=== PATIENT | female | born 1950 | race Caucasian/White ===

== ENCOUNTER 2019-12-14 09:42 | Day surgery (SDC) | payer MEDICARE, OTHER ==
[2019-12-14] MEDS ORDERED: Lactated Ringers 1,000 ML IV SCH (10:15)
[2019-12-14] MEDS ORDERED: Cyanocobalamin (Vitamin B12) 1,000 MCG/ML SDV IM ONE (10:45)
[2019-12-14] MEDS ORDERED: Glycopyrrolate 0.2 MG/ML 2 ML SDV IVPUSH ONE (10:45)
[2019-12-14] MEDS ORDERED: MVI, Adult with Vitamin K 10 ML, Thiamine 200 MG, Chromium/Copper/Mang/Selen/Zn 1 ML in... IV ONE ×4 (11:15)
[2019-12-14] MEDS ORDERED: Propofol 200 MG/20 ML SDV ONE (12:01)
[2019-12-14] MEDS ORDERED: fentaNYL 100 MCG/2 ML SDV ONE (12:01)
[2019-12-14] MEDS ORDERED: Midazolam 1 MG/ML 2 ML SDV ONE (12:01)
[2019-12-14] MEDS ORDERED: Pantoprazole 40 MG Vial IVPUSH ONE (12:32)
[2019-12-14] MEDS ORDERED: Lidocaine 2% 60 ML, Alum Hydrox/Mag Hydrox/Simeth 360 ML PO PRN ×2 (13:33)
--- NOTE | 2019-12-17 12:12 | OR ---
DATE OF PROCEDURE: 12/14/2019 SURGEON: Bennie Mckeon MD PREOPERATIVE DIAGNOSIS: Postprandial epigastric and abdominal pain. POSTOPERATIVE DIAGNOSES: Postprandial epigastric and mid abdominal pain associated with: 1. Mild inflammation of the gastrojejunostomy. 2. Foreign body (staple) eroded into the gastrojejunostomy. OPERATIVE PROCEDURE: Upper GI endoscopy with removal of foreign body (46314). ANESTHESIA: IV sedation. INDICATIONS FOR PROCEDURE: This is a 69-year-old female presenting with some postprandial epigastric and upper and mid abdominal pain. Plan is to proceed with upper GI endoscopy with biopsies as indicated. Potential risks of the procedure including bleeding and perforation were discussed, and the patient wishes to proceed. DETAILS OF PROCEDURE: The patient was taken to the operating room and placed in a left lateral decubitus position and IV sedation administered. The upper GI endoscope was passed orally through the length of the esophagus into the gastric pouch, from there through the gastrojejunostomy roughly 20 cm into the Amina limb. The esophagus and the area of the EG junction were unremarkable. There was some perhaps very mild redness and edema. At the gastrojejunostomy, there was some fibrinous exudate. As this was washed way, she was noted to have a staple that had eroded through the anastomosis. Apart from that, the remainder of the gastrojejunostomy was unremarkable, there was no marginal ulcer, and remainder of the Amina limb was unremarkable as well. At this point, the staple was grasped and removed and the procedure was then concluded. No biopsies were taken for H pylori. This patient had a negative H pylori done at [place]. At this point, the patient has been on Carafate for treatment of the epigastric discomfort. We will give her some Protonix 40 mg IV in the recovery room and then begin Protonix 40 mg daily. We will also have pharmacy mix 2 bottles of 2 ounces of Xylocaine with 12 ounces of Mylanta with 1 to 2 tablespoons to be taken on a p.r.n. basis and that the patient will be following up with Jaky Moore in about 2 weeks. If after 2 weeks of this regimen, the patient still is symptomatic, one would need to reconsider whether the patient has a partial small bowel obstruction. Bennie Mckeon MD /[id number]
== END 2019-12-14 14:00 | disposition home or self-care (01) ==
LOC: JP.SDS 09:42
PROVIDERS: ATTEND Surgery
DX: T18.2XXA Foreign body in stomach, initial encounter (principal); K63.89 Other specified diseases of intestine; Y73.2 Prosthetic and other implants, materials and accessory gastroenterology and urology devices associated with adverse incidents
CPT/HCPCS: 43247; A9270; C9113; J2250; J2704; J3010; J3411; J3420; J3490; J7120; 88300

== ENCOUNTER 2020-05-29 11:44 | Inpatient (IN) | payer MEDICARE, OTHER ==
[2020-05-29] MEDS ORDERED: Iopamidol 612 MG/ML 50 ML SDV PO ONE (12:13)
[2020-05-29] MEDS ORDERED: Acetaminophen 325 MG Tab PO PRN (12:45)
[2020-05-29] MEDS ORDERED: Acetaminophen 650 MG Supp RECTAL PRN (12:46)
[2020-05-29] MEDS: Dextrose 5%-Lactated Ringers 1,000 ML IV SCH ×2 (13:24→23:07)
[2020-05-29] MEDS ORDERED: Iopamidol 612 MG/ML 500 ML Multipack Bottle IV ONE (14:40)
[2020-05-29] MEDS ORDERED: Sodium Chloride 0.9% 10 ML Syringe FLUSH PRN ×2 (14:40→14:44)
[2020-05-29] MEDS ORDERED: Iopamidol 612 MG/ML 150 ML Bottle IV SCH (14:45)
[2020-05-29] MEDS: Pantoprazole 40 MG Vial IV SCH (14:46)
--- NOTE | 2020-05-29 15:47 | CT ---
Abdomen Pelvis w Cont CLINICAL HISTORY: GI bleed COMPARISON: None. TECHNIQUE: Axial tomographic images are obtained from the dome of the diaphragm to the pubic symphysis without IV contrast enhancement. Oral contrast was used. Auto dosage reduction and iterative reconstruction techniques employed. FINDINGS: The lung bases are clear. There is a moderate-sized hiatal hernia there has been previous gastric surgery. This may been a Maurizio procedure. The liver contains a few small cysts.. The gallbladder has been removed. The spleen has a normal size and shape. The pancreas shows no mass or inflammatory change. The adrenal glands appear normal bilaterally. There is an 8.8 x 9.5 cm cyst of the right kidney. There is no mass, stones or hydronephrosis. Ureters have a normal course and caliber. Bladder has normal contour. The small intestinal configuration is nonacute. There is gas and feces throughout the colon. There is some sigmoid diverticulosis without evidence of diverticulitis. Abdominal pelvic fat planes and low pelvic side velez are well demarcated. The aorta is atheromatous plaque without aneurysm.. There is no suspicious retroperitoneal adenopathy. Patient has had previous ventral hernia repair there is a some focal convexity knee. Umbilical region. There is no evidence of incarceration IMPRESSION: Moderate size hiatal hernia. There has been previous gastric surgery which may be a Maurizio procedure. Large right renal cyst Diverticulosis without evidence of diverticulitis Previous ventral hernia repair with some convexity in the periumbilical region.
[2020-05-29] MEDS: Trospium 20 MG Tab PO SCH (22:04)
[2020-05-30] MEDS: Pantoprazole 40 MG Vial IV SCH ×2 (01:53→14:02)
[2020-05-30] MEDS ORDERED: fentaNYL 100 MCG/2 ML SDV ONE (07:18)
[2020-05-30] MEDS ORDERED: Propofol 200 MG/20 ML SDV ONE (07:18)
[2020-05-30] MEDS ORDERED: Midazolam 1 MG/ML 2 ML SDV ONE (07:18)
[2020-05-30] MEDS: Trospium 20 MG Tab PO SCH ×2 (08:28→20:15)
[2020-05-30] MEDS: Dextrose 5%-Lactated Ringers 1,000 ML IV SCH ×2 (08:35→19:30)
--- NOTE | 2020-05-30 08:49 | PN ---
DATE OF SERVICE: 05/30/2020 SUBJECTIVE: Maty was admitted directly from the clinic with a GI bleed yesterday. She has had no further stools. Has been on a full liquid diet. Denies pain. Vital signs have been stable. Hemoglobin on admission was 10.1 and this morning is 8.8. She is n.p.o. for an EGD today. Case to follow. REVIEW OF SYSTEMS: GENERAL: Continues to feel weak, lightheaded. NECK: Negative. CHEST: No chest pain, shortness of breath, fast or irregular heartbeat. LUNGS: No cough. ABDOMEN: Continues to have pain in the right mid and bilateral lower quadrants, mild. As stated, no black stools. EXTREMITIES: Negative. NEUROLOGIC: Intact. PSYCHIATRIC: Mood and affect appropriate. OBJECTIVE: GENERAL: Maty is a pleasant 69-year-old female. Color is pale, looks weak. VITAL SIGNS: Last TPR, due to computer shutdown, charted elsewhere, was 05/29/2020 at 2247; 97.7, 51, 16. Blood pressure 95/42. Rechecked at 2308, and blood pressure was 100/32. HEENT: Negative. NECK: Supple. HEART: Regular rate and rhythm. LUNGS: Clear. ABDOMEN: Remains to be mildly tender in right mid and bilateral lower quadrants. EXTREMITIES: Without peripheral edema. ASSESSMENT: Gastrointestinal bleed, black stools. PLAN: Type and crossmatch 2 units. Give 1 unit of packed red blood cells after EGD. Check CBC, CMP, mag, phos in a.m. Further orders to be written after EGD. Jaky Moore PA-C /[id number]
[2020-05-30] MEDS ORDERED: Ondansetron 4 MG/2 ML SDV ONE (08:56)
[2020-05-30] MEDS ORDERED: Glycopyrrolate 0.2 MG/ML 2 ML SDV IV ONE (09:00)
[2020-05-30] MEDS: Famotidine 20 MG/2 ML SDV IV SCH ×2 (11:15→23:22)
[2020-05-30] MEDS: Sodium Ferric Gluconate Cmplex 250 MG in Sodium Chloride 0.9% 100 ML IV SCH (14:05)
[2020-05-30] MEDS ORDERED: Benzocaine/Cetylpyridinium/Menthol Lozenge MUCMEM PRN (20:04)
[2020-05-31] MEDS: Pantoprazole 40 MG Vial IV SCH ×2 (02:12→15:12)
[2020-05-31] MEDS: Dextrose 5%-Lactated Ringers 1,000 ML IV SCH (05:41)
[2020-05-31] MEDS: Trospium 20 MG Tab PO SCH (08:28)
--- NOTE | 2020-05-31 08:47 | PN ---
DATE OF SERVICE: 05/31/2020 SUBJECTIVE: Maty had an upper endoscopy yesterday and it was negative for any diagnostic reasoning for black stools. She has had a total of 6 black stools on 05/29, and on 05/30, she had 4 black stools. Remains to feel quite weak. Vital signs are stable. Hemoglobin yesterday was 8.9. She received 1 unit of packed red blood cells and her hemoglobin is 9.5 today. REVIEW OF SYSTEMS: Denies any headache. Reports some dizziness and weakness when up and ambulating. NECK: Negative. CHEST AND LUNGS: Denies any chest pain, shortness of breath, fast or irregular heart beat. No cough. ABDOMEN: Had some pain in her right lower quadrant and left upper quadrant yesterday. She states that it is discomfort. Nothing she would take anything for, but she feels like whatever is going on with her black stools has not completely resolved. Denies any joint pain or swelling. Remainder of review of systems negative for any pertinent positives and negatives. OBJECTIVE: GENERAL: Maty Weems is a pleasant 69-year-old female. She is alert, oriented. Color pale. VITAL SIGNS: TPR at 0209 was 96.1, 59, 16, blood pressure 94/45. HEENT: Negative. NECK: Supple. HEART: Regular rate and rhythm. LUNGS: Clear. ABDOMEN: There is mild general tenderness in the right and left lower quadrants and left upper quadrant. EXTREMITIES: Without peripheral edema. NEUROLOGIC: Cranial nerves 2-12 intact. PSYCHIATRIC: Mood and affect appropriate. ASSESSMENT: 1. Esophagogastroduodenoscopy, 05/30/2020, Bennie Mckeon MD. 2. Gastrointestinal bleed, source unknown. 3. Black stools. 4. 1 unit of packed red blood cells for hemoglobin 8.9 on 05/30/2020. PLAN: 1. Schedule and have consent signed for colonoscopy with IV sedation. Bennie Mckeon MD. Date, 06/03/2020. Time to be determined. 2. Routine prep ordered by Pharmacy. 3. Check CBC, CMP, mag, phos, and type and cross 2 units of packed red blood cells in a.m. Transfuse 1 unit of packed red blood cells today and D5 LR. Decrease rate to keep open until Wednesday when she goes n.p.o. We will evaluate p.r.n. or in a.m. Jaky Norby, PA-C /[id number]
[2020-05-31] MEDS: Famotidine 20 MG/2 ML SDV IV SCH ×2 (13:35→23:59)
[2020-05-31] MEDS: Sodium Ferric Gluconate Cmplex 250 MG in Sodium Chloride 0.9% 100 ML IV SCH (13:36)
[2020-05-31] MEDS ORDERED: Dextrose 5%-Lactated Ringers 1,000 ML IV SCH (14:00)
[2020-06-01] MEDS: Pantoprazole 40 MG Vial IV SCH ×2 (02:14→14:01)
--- NOTE | 2020-06-01 07:42 | PN ---
DATE OF SERVICE: 06/01/2020 SUBJECTIVE: Jennas hemoglobin this morning after 1 unit of packed red blood cells yesterday is 10.9. Her potassium is 3.4. She states she still has quite a bit in the way of abdominal pain prior to having a bowel movement, a burning hot crampy type pain and then she said she will have a bowel movement. Yesterday, she had 5 black stools. Continues to feel weak, lightheaded, and unsure of herself after standing for a few minutes. Vital signs, afebrile. Oral intake 2240. Urine output 3840. REVIEW OF SYSTEMS: HEENT: Negative. NECK: Negative. HEART AND LUNGS: No chest pain, shortness of breath. Denies any cough, fast or irregular heart beat. ABDOMEN: As above. GENITOURINARY: Negative. NEUROLOGIC: Negative. PSYCHIATRIC: Negative. SKIN: Negative for any rash. Remainder of review of systems negative for any pertinent positives and negatives. OBJECTIVE: GENERAL: Maty Weems is a pleasant 69-year-old female. VITAL SIGNS: TPR at 0400, 97, 54, 18, blood pressure 112/54. HEENT: Negative. NECK: Supple. HEART: Regular rate and rhythm. LUNGS: Clear. ABDOMEN: Remains to be mildly tender in lower quadrants, in the left upper mid quadrant. EXTREMITIES: Without peripheral edema. NEUROLOGIC: Cranial nerves II through XII intact. PSYCHIATRIC: Mood and affect appropriate. ASSESSMENT: 1. Esophagogastroduodenoscopy on 05/30/2020, Bennie cMkeon MD. 2. Gastrointestinal bleed, source unknown. 3. Black stool. 4. Two units of packed red blood cells for low hemoglobin. PLAN: 1. Check CBC, CMP in a.m. 2. Type and crossmatch 2 units of packed red blood cells, have 2 units on hold. 3. KCl 20 mEq p.o. b.i.d. 4. Continue to monitor black stools. 5. We will evaluate p.r.n. or in a.m. Jaky Moore PA-C /[id number]
[2020-06-01] MEDS: Potassium Chloride 20 MEQ Tab.ER PO SCH ×2 (08:14→16:00)
[2020-06-01] MEDS ORDERED: TOVIAZ 8 MG PO SCH (09:00)
[2020-06-01] MEDS: Famotidine 20 MG/2 ML SDV IV SCH (12:58)
[2020-06-01 18:11] LABS: H. PYLORI BREATH TEST Negative (Negative)
[2020-06-01] MEDS: TOVIAZ 8 MG PO SCH (21:19)
[2020-06-02] MEDS: Famotidine 20 MG/2 ML SDV IV SCH ×3 (00:18→23:38)
[2020-06-02] MEDS: Pantoprazole 40 MG Vial IV SCH ×2 (02:16→13:07)
[2020-06-02] MEDS: Potassium Chloride 20 MEQ Tab.ER PO SCH ×2 (08:46→17:07)
[2020-06-02] MEDS ORDERED: Bisacodyl 5 MG Tab PO ONE ×2 (09:00→20:00)
--- NOTE | 2020-06-02 10:17 | PN ---
DATE OF SERVICE: 06/02/2020 SUBJECTIVE: Maty reports that she has not had a bowel movement for 24 hours. She reports she has an area of firmness on her right lower quadrant, which she gets prior to a bowel movement. She feels like as that area moves before a bowel movement, it is extremely painful. She is not sure when she has a bowel movement, then if that particular stool is black. She has had this checked out several times, but by the time she gets to medical provider, that lump is gone. She can only feel it laying partially on her right side, it is tender. REVIEW OF SYSTEMS: GENERAL: Vital signs have been stable. States she is a little bit less weak today. HEENT: Negative. LUNGS: No chest pain or shortness of breath. No cough. HEART: No fast or irregular heart beat. ABDOMEN: As above. When this area of firmness, which is most likely stool moves, she states she gets sick, which is nauseated and crampy until she has a bowel movement, which is painful. EXTREMITIES: Negative. NEUROLOGIC: Intact. No headache or dizziness. PSYCHIATRIC: Mood and affect appropriate. Remainder of review of systems negative for any pertinent positives and negatives. OBJECTIVE: GENERAL: Maty Weems is a 69-year-old female. She is alert and orientated. Color pale. VITAL SIGNS: TPR at 0400 is 97.3, 52, 18; blood pressure 93/47. HEENT: Negative. NECK: Supple. HEART: Regular rate and rhythm. LUNGS: Clear. ABDOMEN: There is a firmness noted, feels like stool in the colon on the right lower quadrant. EXTREMITIES: Without peripheral edema. NEUROLOGIC: Intact. PSYCHIATRIC: Mood and affect appropriate. ASSESSMENT: 1. EGD, 05/30/2020, Bennie Mckeon MD. 2. Gastrointestinal bleed, source unknown. 3. Black stool. 4. Two units of packed red blood cells for low hemoglobin. PLAN: 1. Start D5 LR at 100 mL per hour at midnight when the patient becomes n.p.o. 2. N.p.o. after midnight and colon prep is already ordered and will be having a colonoscopy in the a.m. 3. We will evaluate p.r.n. or in a.m. Jaky Moore PA-C /[id number]
[2020-06-02] MEDS: Polyethylene Glycol 3350 Powder 238 GM Bot PO ONE ×2 (14:26→17:07)
[2020-06-02] MEDS: Dextrose 5%-Lactated Ringers 1,000 ML IV SCH (23:39)
[2020-06-03] MEDS: Pantoprazole 40 MG Vial IV SCH ×2 (02:42→14:21)
[2020-06-03] MEDS ORDERED: Midazolam 1 MG/ML 2 ML SDV ONE (07:31)
[2020-06-03] MEDS ORDERED: Propofol 200 MG/20 ML SDV ONE (07:31)
[2020-06-03] MEDS ORDERED: fentaNYL 100 MCG/2 ML SDV ONE (07:31)
[2020-06-03] MEDS ORDERED: Lactated Ringers 1,000 ML ONE (07:53)
[2020-06-03] MEDS: Potassium Chloride 20 MEQ Tab.ER PO SCH ×2 (09:37→16:03)
[2020-06-03] MEDS: Famotidine 20 MG/2 ML SDV IV SCH ×2 (13:01→23:39)
--- NOTE | 2020-06-03 16:32 | PN ---
DATE OF SERVICE: 06/03/2020 SUBJECTIVE: Maty is n.p.o. for colonoscopy on today. Hemoglobin 10.7. She had 9 stools on 06/02 and 4 stools on 06/03 so far: Stools are clear with flecks of black. Continues to report the right lower quadrant abdominal pain and bulging. REVIEW OF SYSTEMS: Remainder of review of systems negative for any pertinent positives and negatives. OBJECTIVE: GENERAL: Maty Weems is a 69-year-old female, color pale, alert and orientated. VITAL SIGNS: TPR at 0246; 96.6, 52, 14. Blood pressure 97/49. HEENT: Negative. NECK: Supple. HEART: Regular rate and rhythm. LUNGS: Clear. ABDOMEN: Tenderness and fullness in the right lower quadrant. EXTREMITIES: Without peripheral edema. NEUROLOGIC: Intact. PSYCHIATRIC: Mood and affect appropriate. ASSESSMENT: 1. Esophagogastroduodenoscopy, 05/30/2020, Bennie Mckeon MD. 2. Gastrointestinal bleed, source unknown. 3. Black stools. 4. Two units of packed red blood cells for low hemoglobin. PLAN: 1. Orders to be written after colonoscopy. 2. Check CBC, CMP, mag, phos in a.m. 3. We will evaluate p.r.n. or in a.m. Jaky Moore PA-C /[id number]
[2020-06-03] MEDS: TOVIAZ 8 MG PO SCH (21:26)
[2020-06-04] MEDS: Pantoprazole 40 MG Vial IV SCH ×2 (02:48→13:26)
--- NOTE | 2020-06-04 08:32 | PN ---
DATE OF SERVICE: 06/04/2020 SUBJECTIVE: Maty is n.p.o. She will be having an open repair of right inguinal hernia with mesh with general anesthesia. Case to follow today. She is n.p.o. Vital signs have been stable. Has had no further black stools. She did have a colonoscopy yesterday, which was unremarkable, REVIEW OF SYSTEMS: Remainder of review of systems negative for any pertinent positives and negatives. OBJECTIVE: GENERAL: Maty Weems is a pleasant 69-year-old female. TPR at 0300; 97.2, 58, 15, blood pressure 122/55. HEENT: Negative. NECK: Supple. HEART: Regular rate and rhythm. LUNGS: Clear. ABDOMEN: Right inguinal hernia noted. Tenderness and bulging. EXTREMITIES: Without peripheral edema. NEURO: Cranial nerves II through XII intact. PSYCHIATRIC: Mood and affect appropriate. ASSESSMENT: 1. Colonoscopy 06/03/2020, Bennie Mckeon MD. 2. Esophagogastroduodenoscopy 05/30/2020, Bennie Mckeon MD. 3. Gastrointestinal bleed. 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 4. Black stools. 5. 2 units of packed red blood cells for low hemoglobin. PLAN: Consent signed for open repair of right inguinal hernia with mesh. General anesthesia. Tap block, ketamine loading dose, and infusion. Case to follow 06/04/2020, surgeon Bennie Mckeon MD, clindamycin 900 mg IV, on-call to OR. After preoperative evaluation and discussion of possible risks and possible complications, the patient wishes to proceed with surgical procedure. Jaky Moore PA-C /[id number]
[2020-06-04] MEDS: Potassium Chloride 20 MEQ Tab.ER PO SCH ×2 (08:37→18:10)
[2020-06-04] MEDS: Dextrose 5%-Lactated Ringers 1,000 ML IV SCH ×2 (11:51→20:23)
[2020-06-04] MEDS ORDERED: Lidocaine 1% with EPINEPHrine 1:100,000 50 ML MDV ONE (12:17)
[2020-06-04] MEDS ORDERED: Bupivacaine 0.5% 50 ML MDV ONE (12:17)
[2020-06-04] MEDS ORDERED: Bupivacaine 0.5%/EPINEPHrine 1:200,000 50 ML MDV ONE (12:17)
[2020-06-04] MEDS: Famotidine 20 MG/2 ML SDV IV SCH (13:26)
[2020-06-04] MEDS ORDERED: fentaNYL 250 MCG/5 ML SDV ONE (13:28)
[2020-06-04] MEDS ORDERED: Ketamine 500 MG/5 ML MDV IV SCH (13:30)
[2020-06-04] MEDS ORDERED: Clindamycin Phosphate 900 MG in Sodium Chloride 0.9% 100 ML IV ONE (13:30)
[2020-06-04] MEDS ORDERED: Ketamine 50 MG in Sodium Chloride 0.9% 49.5 ML IV SCH (13:30)
[2020-06-04] MEDS ORDERED: Ondansetron 4 MG/2 ML SDV ONE (13:49)
[2020-06-04] MEDS ORDERED: Dexamethasone 4 MG/ML SDV ONE (13:49)
[2020-06-04] MEDS ORDERED: Propofol 200 MG/20 ML SDV ONE (13:49)
[2020-06-04] MEDS ORDERED: Rocuronium 50 MG/5 ML Vial ONE (13:49)
[2020-06-04] MEDS ORDERED: Neostigmine Methylsulfate 1 MG/ML 5 ML Syringe ONE (13:49)
[2020-06-04] MEDS ORDERED: Glycopyrrolate 0.2 MG/ML 5 ML MDV ONE (13:49)
[2020-06-04] MEDS ORDERED: Ketorolac 60 MG/2 ML SDV ONE (15:50)
[2020-06-04] MEDS ORDERED: Meropenem 500 MG SDV ONE (16:00)
[2020-06-04] MEDS ORDERED: Lactated Ringers 1,000 ML ONE (16:16)
[2020-06-04] MEDS ORDERED: fentaNYL 100 MCG/2 ML SDV ONE (16:48)
[2020-06-04] MEDS ORDERED: hydrOXYzine HCL 100 MG/2 ML SDV IM ONE (17:27)
[2020-06-04] MEDS ORDERED: Naloxone 0.4 MG/ML SDV IVPUSH PRN (17:34)
[2020-06-04] MEDS ORDERED: HYDROmorphone/Normal Saline 15 MG/30 ML PCA IV PRN (17:34)
[2020-06-04] MEDS ORDERED: Cyclobenzaprine 10 MG Tab PO PRN (18:03)
[2020-06-04] MEDS ORDERED: HYDROmorphone 1 MG/ML Syringe IV PRN (19:52)
[2020-06-04] MEDS ORDERED: HYDROmorphone 2 MG Tab PO PRN (19:53)
[2020-06-04] MEDS ORDERED: diphenhydrAMINE 25 MG Cap PO PRN (20:08)
[2020-06-04] MEDS ORDERED: diphenhydrAMINE 50 MG/ML SDV IVPUSH PRN (20:09)
[2020-06-04] MEDS: Acetaminophen 325 MG Tab PO SCH (21:16)
[2020-06-04] MEDS: Clindamycin Phosphate 900 MG in Sodium Chloride 0.9% 100 ML IV SCH (21:17)
[2020-06-05] MEDS: Famotidine 20 MG/2 ML SDV IV SCH ×2 (00:55→11:31)
[2020-06-05] MEDS: Pantoprazole 40 MG Vial IV SCH ×2 (01:01→14:05)
[2020-06-05] MEDS: Acetaminophen 325 MG Tab PO SCH ×4 (01:01→19:44)
[2020-06-05] MEDS: Clindamycin Phosphate 900 MG in Sodium Chloride 0.9% 100 ML IV SCH ×2 (05:17→14:06)
[2020-06-05] MEDS: Dextrose 5%-Lactated Ringers 1,000 ML IV SCH ×2 (07:31→18:34)
[2020-06-05] MEDS: Potassium Chloride 20 MEQ Tab.ER PO SCH ×2 (08:22→17:06)
--- NOTE | 2020-06-05 08:49 | PN ---
DATE OF SERVICE: 06/05/2020 SUBJECTIVE: Maty is postop day #1. She states her pain is controlled with the LITHOGRAPH DESIGNER. She has only needed to use it a couple of times. Pulse runs between 49 and 56. She had a black stool before she went to OR yesterday. She reports a floater in her left eye with an area of cloudiness, which she has never had before. She did discuss this with Dr. Bennie Mckeon during rounds. REVIEW OF SYSTEMS: Remainder of review of systems negative for any pertinent positives and negatives. OBJECTIVE: GENERAL: Maty Weems is a pleasant 69-year-old female. TPR 0400; 97, 52, 16, blood pressure 102/56. HEENT: Negative. NECK: Supple. HEART: Regular rate and rhythm. LUNGS: Clear. ABDOMEN: Dressing dry and intact. Abdominal binder is on. EXTREMITIES: Without peripheral edema. ASSESSMENT: 1. Exploratory laparotomy with right inguinal hernia repair, right incisional hernia repair, excision of lipoma right inguinal floor. Date of procedure 06/04/2020. 2. Colonoscopy 06/03/2020, Bennie Mckeon MD. 3. Esophagogastroduodenoscopy 05/30/2020, Bennie Mckeon MD. 4. 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 5. Black stools. 6. 2 units of packed red blood cells for low hemoglobin. PLAN: 1. Step 2 gastric bypass diet. 2. DC LITHOGRAPH DESIGNER and continuous pulse ox. 3. Dilaudid 2 to 4 mg every 4 hours p.r.n. pain. 4. Decrease IV rate to 100 mL per hour. 5. We will evaluate p.r.n. or in a.m. Jaky Moore PA-C /[id number]
[2020-06-05] MEDS: HYDROmorphone 2 MG Tab PO PRN ×3 (11:30→22:19)
--- NOTE | 2020-06-05 16:09 | OR ---
DATE OF PROCEDURE: 05/30/2020 SURGEON: Bennie Mckeon MD PREOPERATIVE DIAGNOSIS: Probable upper gastrointestinal bleeding. POSTOPERATIVE DIAGNOSIS: Probable upper gastrointestinal bleeding with normal upper gastrointestinal endoscopy status post Amina-en-Y gastric bypass (probable bleeding from tribe stomach and/or duodenum). OPERATIVE PROCEDURE: Upper gastrointestinal endoscopy. ANESTHESIA: IV sedation. INDICATION FOR PROCEDURE: A 69-year-old presenting with a significant anemia and history of black stools. In the past, she has had problems with inflammation and ulceration around her gastrojejunostomy and at this point is undergoing upper GI endoscopy for further evaluation. Potential risks including bleeding and perforation were discussed, and the patient wishes to proceed. DETAILS OF PROCEDURE: The patient was taken to the operating room and placed in a left lateral decubitus position. IV sedation was administered, after which the upper GI endoscope was passed orally through the length of the esophagus into the gastric pouch, from there through the gastrojejunostomy roughly 20 cm into the Amina limb. Overall, the findings were entirely normal. There were no areas of blood or bleeding. No areas of significant inflammation or stricturing noted at the entire course of the exam. The scope was then withdrawn and the above procedure concluded. The patient was taken to the recovery room in satisfactory condition. Given the black stools, the patient most likely is going to be having some bleeding from the duodenum and/or bypassed portion of the stomach. We will maximize the amount of proton pump inhibitor use at this point and check the H. pylori status by means of a breath test. Bennie Mckeon MD /[id number]
[2020-06-05] MEDS: TOVIAZ 8 MG PO SCH (22:15)
[2020-06-06] MEDS: Pantoprazole 40 MG Vial IV SCH (01:17)
[2020-06-06] MEDS: Acetaminophen 325 MG Tab PO SCH ×4 (01:17→20:04)
[2020-06-06] MEDS: Famotidine 20 MG/2 ML SDV IV SCH (01:20)
[2020-06-06] MEDS: HYDROmorphone 2 MG Tab PO PRN ×6 (04:09→23:58)
[2020-06-06] MEDS: Dextrose 5%-Lactated Ringers 1,000 ML IV SCH (04:11)
[2020-06-06] MEDS: Potassium Chloride 20 MEQ Tab.ER PO SCH ×2 (08:02→16:09)
--- NOTE | 2020-06-06 09:14 | PN ---
DATE OF SERVICE: 06/06/2020 SUBJECTIVE: Maty states that she is not feeling real well this morning, having increased amount of pain. Most of the pain is when she is up ambulating and that shoots down her right leg and feels like her leg is going to give out. She reports not passing any gas, but has a lot of gas movement in her stomach. Has been afebrile. Remainder of review of systems negative for any pertinent positives and negatives. OBJECTIVE: GENERAL: Maty Weems is a pleasant 69-year-old female. VITAL SIGNS: TPR at 0400; 96.8, 54, 16. Blood pressure 99/43. HEENT: Negative. NECK: Supple. HEART: Regular rate and rhythm. LUNGS: Clear. ABDOMEN: Dressings dry and intact. Abdominal binder is on. EXTREMITIES: Without peripheral edema. ASSESSMENT: 1. Exploratory laparotomy with right inguinal hernia repair, right incisional hernia repair, excision of lipoma right inguinal floor. Date of procedure: 06/04/2020. Surgeon: Bennie Mckeon MD. 2. Colonoscopy 06/03/2020, Bennie Mckeon MD. 3. EGD 05/30/2020, Bennie Mckeon MD. 4. 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 5. Black stools. 6. Two units of packed red blood cells given for low hemoglobin. PLAN: 1. Saline lock IV. 2. Reassurance given that she is getting Dilaudid 2 to 4 mg and she can ask for it every 4 hours. 3. Dulcolax 10 mg tablets b.i.d. until patient has a bowel movement, to be given orally. 4. Colace 100 mg p.o. b.i.d. 5. Continue ambulation, good pulmonary function. 6. We will evaluate p.r.n. or in a.m. Jaky Moore PA-C /[id number]
[2020-06-06] MEDS: Bisacodyl 5 MG Tab PO SCH ×2 (09:18→20:04)
[2020-06-06] MEDS: Docusate Sodium 100 MG Cap PO SCH ×2 (09:18→20:05)
[2020-06-06] MEDS: Famotidine 20 MG Tab PO SCH (16:07)
[2020-06-06] MEDS: Pantoprazole 40 MG Tab.CR PO SCH (16:07)
[2020-06-07] MEDS: Acetaminophen 325 MG Tab PO SCH ×2 (02:46→08:00)
[2020-06-07] MEDS: HYDROmorphone 2 MG Tab PO PRN ×2 (04:00→08:05)
[2020-06-07] MEDS: Potassium Chloride 20 MEQ Tab.ER PO SCH (08:00)
[2020-06-07] MEDS: Famotidine 20 MG Tab PO SCH (08:00)
[2020-06-07] MEDS: Pantoprazole 40 MG Tab.CR PO SCH (08:00)
[2020-06-07] MEDS: Bisacodyl 5 MG Tab PO SCH (09:56)
[2020-06-07] MEDS: Docusate Sodium 100 MG Cap PO SCH (09:56)
--- NOTE | 2020-06-07 15:15 | DISCH ---
ADMISSION DIAGNOSES: 1. GI bleed. 2. Black stools. 3. Low hemoglobin. 4. 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 6. B12 deficiency. DISCHARGE DIAGNOSES: 1. Exploratory laparotomy with right inguinal hernia repair, right incisional hernia repair, excision of lipoma, right inguinal floor. Date of procedure 06/04/2020. Surgeon: Bennie Mckeon MD. 2. Colonoscopy on 06/03/2020. Bennie Mckeon MD. 3. EGD on 05/30/2020. Bennie Mckeon MD. 4. 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 5. Black stools. 6. Two units of packed red blood cells given for low hemoglobin. HISTORY: Maty was presented to the clinic with black stools, weak, dizzy, and was admitted to the hospital. She did have an EGD which was negative, persisted to have black stools and then had a colonoscopy which was negative. Received 2 units of packed red blood cells, and throughout her stay, she had right lower quadrant abdominal pain and bulging. She states she has had it checked out several times, but every time she went into the clinic to get it checked out, the bulging was no longer there. It was noted on exam that she had an inguinal hernia, and after preoperative evaluation and discussion of possible risks and possible complications, she wished to proceed with the above surgical procedure. She did receive 2 units of packed red blood cells while hospitalized and her hemoglobin after fluids was 8.9, and on discharge, her hemoglobin was 9.6. On 06/07/2020, pain was controlled. Activity was good. Oral intake and output adequate. She was ready to be discharged to home without any complications. PHYSICAL EXAMINATION: GENERAL: Maty Weems is a pleasant 69-year-old female. Height is 5 feet 6 inches. Weight is 200 pounds. VITAL SIGNS: TPR at 0758; 96.8, 56, 18, blood pressure 113/48. HEENT: Negative. NECK: Supple. HEART: Regular rate and rhythm. LUNGS: Clear. ABDOMEN: Stapled incisions both on the right are healing well. Abdomen otherwise normally tender, soft. EXTREMITIES: Without peripheral edema. DISPOSITION: Discharged to home. CONDITION: Stable and improving. FOLLOWUP: Appointment with Jaky Moore PA-C, on 06/18/2020 at 9:15 a.m. DISCHARGE MEDICATIONS: New Prescriptions: 1. Colace 100 mg p.o. twice daily #60. 2. Dilaudid 2 to 4 mg every 4 hours p.r.n. pain #42. 3. Dulcolax 10 mg oral tablets b.i.d. until patient has bowel movement #60. 4. Pepcid 40 mg oral twice daily before meals #60 for one month. 5. Protonix 40 mg oral b.i.d. #60, 11 refills. 6. Tylenol 650 mg every 6 hours p.r.n. pain. To resume home medication of: 1. Albuterol sulfate, Proventil 2 puffs inhalation every 4 hours p.r.n. shortness of breath. 2. Vitamin C 250 mg oral twice daily. 3. Calcium 500 mg oral twice daily. 4. Vitamin D3 1000 international units twice daily. 5. Toviaz 8 mg at bedtime. 6. Advair Diskus 250/50 one puff inhalation daily. 7. Flonase 2 sprays nasal daily. 8. Probiotic one twice daily. 9. Multivitamin 1 oral twice daily. 10.Carafate 1 g 4 times a day if needed. DIET: Step 3 gastric bypass diet. Drink 8 to 10 glasses of water a day. ACTIVITY: No lifting over 10 pounds for 6 weeks. Walk 6 times inside your home. Driving, do not drive for 1 week or while on pain medication. May shower. DISCHARGE INSTRUCTIONS: Notify provider if any fever, increased pain, swelling, redness, drainage, nausea, or vomiting. Keep site clean and dry. Wear abdominal binder for 6 weeks and then as tolerated. Use incentive spirometer 10 times every hour while awake for 1 week.
--- NOTE | 2020-06-09 12:52 | OR ---
DATE OF PROCEDURE: 06/04/2020 SURGEON: Bennie Mckeon MD PREOPERATIVE DIAGNOSIS: Incarcerated incisional versus inguinal hernia. POSTOPERATIVE DIAGNOSES: 1. Incarcerated incisional hernia (underlying panniculectomy incision). 2. Incarcerated right direct inguinal hernia. 3. Right ilioinguinal nerve at risk for scar entrapment. 4. Intraabdominal lipoma underlying the abdominal wall adjacent to the inguinal floor (11 cm). OPERATIVE PROCEDURES: 1. Open repair of incarcerated incisional hernia with mesh (43408, 74502). 2. Open repair of right inguinal hernia with mesh plug technique (59362). 3. Division of the portion of right ilioinguinal nerve (91348). 4. Excision of intraperitoneal lipoma underlying the abdominal wall adjacent to the right inguinal floor (06869). 5. Placement of Interceed mesh to displace the pelvic and abdominal wall from underlying viscera to limit recurrent adhesion formation (35644). ANESTHESIA: General. RICE MILLING SUPERVISOR: Jaky Moore PA-C INDICATIONS FOR PROCEDURE: Please see progress note dated 06/03/2020. The potential risks were reviewed once again this morning with the patient and she wishes to proceed. DETAILS OF PROCEDURE: The patient was taken to the operating room and placed in a supine position. After general endotracheal anesthesia was induced, Garcia catheter was inserted and the abdomen prepped and draped. At the premarked location of the abdominal wall just above the right lateral aspect of the previous Pfannenstiel incision, an incision was made and carried down through the skin and subcutaneous tissue, and as when went through the initial external oblique aponeurosis, an area of herniation was encountered. This contained some incarcerated omentum within it which was dissected free and returned back to the peritoneal cavity. The peritoneal sac was then excised and flushed with the underlying junction of the peritoneum and the otherwise intact innermost fascial layer. Some additional adhesions around this were then freed up. Again, this hernia appeared to be between the layers of the internal oblique and transverse abdominis muscles layers, and upon entering the peritoneal cavity, palpation inferiorly showed a separate broad-based direct inguinal hernia which was more or less in continuity with the initial hernia identified more superiorly. At this point, decision was made to repair the present incisional hernia and then separately repair the right inguinal hernia which we thought would give the best overall results in terms of lack of recurrence. At this point, the ventral hernia mesh measuring 17.8 cm was selected at the premarked locations on the polypropylene side of the mesh. 2-0 Vicryl sutures were placed and valiente on the skin were then placed where the sutures would be pulled up, thus fixing the mesh well away from the fascial edges. The mesh was affixed with the long axis in the lateral direction. The mesh was then placed into intraperitoneal location with the polypropylene side facing the abdominal wall. The medial half of the suture was then placed and pulled up. This then allowed placement of Interceed mesh mesh and then remaining sutures were then pulled up and these were then tied. The mesh was further secured circumferentially with titanium tacking screws placed to underlying shelf of the mesh. The musculature was then approximated with 2 layers of #2 Vicryl stitch and the subcutaneous tissue with some 4-0 Vicryl stitch and the skin subsequently with minh. The mesh prior to being placed had been also soaked in a meropenem and Zyvox-containing saline solution. The standard right inguinal incision was then made and carried down through the skin and subcutaneous tissue somewhat inferior to the panniculectomy excision. The direct inguinal hernia was then identified after division of the external oblique aponeurosis and subaponeurotic flaps being raised. The transverse abdominis muscle was then opened. The patient was noted to have an intraperitoneal lipoma which measured around 11 cm which extended underneath the peritoneal surface of the abdominal wall and this was then excised and sent as a separate specimen. An extra large mesh plug was then selected and placed into the defect. This affixed the Isrrael ligament with titanium tacking screws to the underside of the conjoint tendon medially, superiorly, and laterally with horizontal mattress sutures. The round ligament was divided as part of the dissection, and at that point, the free edge of the conjoint tendon was also sutured down to include the shelving portion of the inguinal ligament with a running 0 Vicryl stitch. The right ilioinguinal nerve was in the area of much of the suturing and was felt to be at risk for scar entrapment and chronic pain, therefore, the portion of the right ilioinguinal nerve was divided and excised at the far lateral aspect of the incision. External oblique aponeurosis was then approximated over that and the subcutaneous tissue approximated with some 3 and 4-0 Vicryl stitch deep and then minh for the skin. The entire area was anesthetized with 1% lidocaine mixed with Marcaine as well. Physician physician's assistant, Jaky Moore, played an essential role in assisting in this case helping to position the patient, retract structures as needed, as well as suturing and cutting sutures when indicated. Her presence improved patient safety and decreased the operative time. Bennie Mckeon MD /[id number]
--- NOTE | 2020-06-09 13:01 | OR ---
DATE OF PROCEDURE: 06/03/2020 SURGEON: Bennie Mckeon MD PREOPERATIVE DIAGNOSIS: Possible cecal pathology on CT scan. POSTOPERATIVE DIAGNOSIS: Normal colonoscopic examination. OPERATIVE PROCEDURE: Flexible colonoscopy. ANESTHESIA: IV sedation. INDICATIONS FOR PROCEDURE: This is a 69-year-old presenting with some ongoing right lower and mid abdominal pain which appeared to probably have an area of herniation involving the right lower quadrant with this being either an incisional and/or inguinal hernia. The CT scan as part of evaluation process questioned whether or not there is some inflammation or mass effect in the cecum. The plan was to proceed with a colonoscopy with biopsies as indicated. Potential risks of the procedure including bleeding and perforation were discussed and the patient wishes to proceed. DETAILS OF PROCEDURE: The patient was taken to the operating room, placed in a left lateral decubitus position. IV sedation was administered after which the initial digital rectal exam was performed and was unremarkable. The colonoscope was then passed into the rectum with retroflexion revealing uncomplicated hemorrhoidal columns. The scope was then eventually passed to the cecum. The prep was quite good with only a small amount of liquid stool present. To that level, no abnormalities were noted and no areas of diverticular disease and no areas of colitis and no polyps or other signs of neoplasia. Specifically, the area of the cecum was unremarkable. The scope was then withdrawn, the above findings reconfirmed, and the procedure then concluded. Plan will be to examine the patient somewhat further later today to try to sort out what is going on with regard to the likely hernia situation in the right lower abdomen. Bennie Mckeon MD /[id number]
--- NOTE | 2020-06-09 14:37 | PN ---
DATE OF SERVICE: 06/03/2020 The patient underwent a colonoscopy earlier today which showed no significant pathology in the area of the cecum specifically. After the patient was back in the room, I did come back to examine her further, and the roughly tennis ball size mass continues to present underneath the right lower quadrant abdominal wall and with some manipulation is generally reducible. This extends somewhat down towards the groin and the point where it seemed to back into the abdomen that is underneath the lateral aspect of the Pfannenstiel incision on the right side. Given this, at this point, the plan will be to proceed with exploration of this tomorrow and repair of the hernias that are present probably with mesh. Potential risks of the procedure including bleeding, infection, injury to underlying viscera, entrapment of nerves during the process, recurrence of the hernia as well as possible problems with the mesh becoming infected were all gone over, and the patient wishes to proceed. Surgery will be scheduled for tomorrow. Bennie Mckeon MD /[id number]
== END 2020-06-07 10:00 | disposition home or self-care (01) | DRG 351 ==
LOC: JP.MS 11:44
PROVIDERS: ADMIT Surgery; ATTEND Surgery
PROC: 0DJ08ZZ Inspection of Upper Intestinal Tract, Via Natural or Artificial Opening Endoscopic (ICD-10-PCS; principal; 2020-05-30)
PROC: 30233N1 Transfusion of Nonautologous Red Blood Cells into Peripheral Vein, Percutaneous Approach (ICD-10-PCS; 2020-05-30)
PROC: 0DJD8ZZ Inspection of Lower Intestinal Tract, Via Natural or Artificial Opening Endoscopic (ICD-10-PCS; 2020-06-03)
PROC: 0YU50JZ Supplement Right Inguinal Region with Synthetic Substitute, Open Approach (ICD-10-PCS; 2020-06-04)
PROC: 0WUF0JZ Supplement Abdominal Wall with Synthetic Substitute, Open Approach (ICD-10-PCS; 2020-06-04)
PROC: 0JB80ZZ Excision of Abdomen Subcutaneous Tissue and Fascia, Open Approach (ICD-10-PCS; 2020-06-04)
PROC: 01BB0ZZ Excision of Lumbar Nerve, Open Approach (ICD-10-PCS; 2020-06-04)
PROC: 3E0M05Z Introduction of Adhesion Barrier into Peritoneal Cavity, Open Approach (ICD-10-PCS; 2020-06-04)
DX: K92.2 Gastrointestinal hemorrhage, unspecified (principal); K91.2 Postsurgical malabsorption, not elsewhere classified; J45.909 Unspecified asthma, uncomplicated; F32.9 Major depressive disorder, single episode, unspecified; K21.9 Gastro-esophageal reflux disease without esophagitis; M19.90 Unspecified osteoarthritis, unspecified site; K92.1 Melena; E53.8 Deficiency of other specified B group vitamins; E53.9 Vitamin B deficiency, unspecified; E50.9 Vitamin A deficiency, unspecified; E83.00 Disorder of copper metabolism, unspecified; R63.3 Feeding difficulties; Z20.828 Contact with and (suspected) exposure to other viral communicable diseases; D64.9 Anemia, unspecified; Z90.710 Acquired absence of both cervix and uterus; Z98.84 Bariatric surgery status
CPT/HCPCS: 36415; 36430; 74177; 74177-26; 80053; 82306; 82607; 82728; 82746; 83013; 83735; 84100; 84425; 84590; 85025; 85027; 86850; 86900; 86901; 86920; 86922; 88302; 88304; 94762; A9270-GY; C1713; C1781; C9113; J0171; J1100; J1170; J1885; J2020; J2185; J2250; J2405; J2704; J2710; J2795; J2916; J3010; J3410; J3490; J7050; J7120; J7121; P9016; Q9967; U0002

== ENCOUNTER 2020-06-27 16:28 | Emergency (ER) | payer MEDICARE, OTHER ==
--- NOTE | 2020-06-27 16:54 | EDM.PDOC ---
<Ermelinda Young - Last Filed: 06/27/20 17:54> ED HPI GENERAL MEDICAL PROBLEM - General Chief Complaint: Abdominal Pain Stated Complaint: RIGHT SIDE PAIN Time Seen by Provider: 06/27/20 16:52 Source of Information: Reports: Patient History Limitations: Reports: No Limitations - History of Present Illness INITIAL COMMENTS - FREE TEXT/NARRATIVE: pt arrived with pain in the rt upper abdoman. She has had her GB removed She has had a hernia repair on Jun 04. Onset: Today, Sudden Duration: Hour(s): Location: Reports: Abdomen Associated Symptoms: Reports: Loss of Appetite, Nausea/Vomiting Right Upper Abdomen Pain Score (Numeric/FACES): 7 - Related Data Allergies Allergy/AdvReac Type Severity Reaction Status Date / Time cefuroxime [From Ceftin] Allergy Burning in Verified 06/27/20 16:59 stomach ibuprofen Allergy Hives, Verified 06/27/20 16:59 [From Advil Cold and Sinus] Pruritis, Rash ketorolac tromethamine Allergy Itching Verified 06/27/20 16:59 [From Toradol] NSAIDS (Non-Steroidal Allergy Pruritis Verified 06/27/20 16:59 Anti-Inflamma Penicillins Allergy Cannot Verified 06/27/20 16:59 Remember pseudoephedrine Allergy Hives, Verified 06/27/20 16:59 [From Advil Cold and Sinus] Pruritis, Rash Home Meds: Home Meds Albuterol Sulfate [Proventil Hfa] 2 puff INH Q4H PRN 12/14/19 [History] Ascorbic Acid [Vitamin C] 250 mg PO BID 12/14/19 [History] Calcium Carbonate [Calcium] 500 mg PO BID 12/14/19 [History] Cholecalciferol (Vitamin D3) [Vitamin D3] 1,000 unit PO BID 12/14/19 [History] Fesoterodine Fumarate [Toviaz] 8 mg PO BEDTIME 12/14/19 [History] Fluticasone Propion/Salmeterol [Advair 250-50 Diskus] 1 puff INH ASDIRECTED PRN 12/14/19 [History] Fluticasone Propionate [Flonase] 2 spr NS DAILY PRN 12/14/19 [History] Multivitamin with Minerals [Multiple Vitamin] 1 tab PO BID 12/14/19 [History] Acetaminophen [Tylenol] 650 mg PO Q6H tablet 06/07/20 [Rx] Docusate Sodium [Colace] 100 mg PO BID #60 cap 06/07/20 [Rx] Famotidine [Pepcid] 40 mg PO BIDAC #60 tablet 06/07/20 [Rx] Pantoprazole [ProTONIX] 40 mg PO BIDAC #60 tab.cr 06/07/20 [Rx] bisacodyL [Dulcolax] 10 mg PO BID PRN #60 tablet 06/07/20 [Rx] Cyanocobalamin (Vitamin B12) [Vitamin B12] 0 mg PO BID 06/27/20 [History] Ferrous Sulfate [Iron] 0 mg PO DAILY 06/27/20 [History] Vitamin B Complex [B Complex] 1 each PO DAILY 06/27/20 [History] Past Medical History HEENT History: Reports: Impaired Vision Cardiovascular History: Reports: None Respiratory History: Reports: Asthma, Pneumonia, Recurrent Gastrointestinal History: Reports: GERD, GI Bleed Genitourinary History: Reports: Other (See Below) Other Genitourinary History: Overactive polycystic bladder BULL LADLE TENDER History: Reports: Other BULL LADLE TENDER History: toxemia with x2 Musculoskeletal History: Reports: Back Pain, Chronic, Fibromyalgia Hematologic History: Reports: Blood Transfusion(s) Immunologic History: Reports: None Oncologic (Cancer) History: Reports: None Dermatologic History: Reports: Other (See Below) Other Dermatologic History: itchy, dry skin - Infectious Disease History Infectious Disease History: Reports: Chicken Pox, Measles, Mumps - Past Surgical History HEENT Surgical History: Reports: None Cardiovascular Surgical History: Reports: None Respiratory Surgical History: Reports: None GI Surgical History: Reports: Bariatric Procedure, Cholecystectomy, Colonoscopy, EGD, Other (See Below) Other GI Surgeries/Procedures: exploratory laparotomy, mesh placed Female Surgical History: Reports: Hysterectomy, Other (See Below) Other Female Surgeries/Procedures: panniculectomy Musculoskeletal Surgical History: Reports: Other (See Below) Other Musculoskeletal Surgeries/Procedures:: toe surgery Social & Family History - Family History Family Medical History: Noncontributory - Caffeine Use Caffeine Use: Reports: None ED ROS GENERAL - Review of Systems Review Of Systems: See Below Constitutional: Reports: Malaise, Weakness, Decreased Appetite HEENT: Reports: No Symptoms Respiratory: Reports: No Symptoms Cardiovascular: Reports: No Symptoms Endocrine: Reports: No Symptoms GI/Abdominal: Reports: Abdominal Pain, Other (pain in rt upper abdoman. ) : Reports: No Symptoms Musculoskeletal: Reports: No Symptoms Skin: Reports: No Symptoms Neurological: Reports: No Symptoms Psychiatric: Reports: No Symptoms ED EXAM, GI/ABD - Physical Exam Exam: See Below Text/Narrative:: pt arrivd with pain in the rt upper quadrant. She is post meghan. She had a vebntral hernioa repair done on Jun 04. She has no urine symptoms. Exam Limited By: No Limitations General Appearance: Alert, Anxious, Moderate Distress Ears: Normal TMs Nose: Normal Inspection Throat/Mouth: Normal Inspection Head: Atraumatic Neck: Normal Inspection Respiratory/Chest: No Respiratory Distress Cardiovascular: Regular Rate, Rhythm GI/Abdominal Exam: Tender, Other (pt is very tender under the rt diaphram) (Female) Exam: Deferred Rectal (Female) Exam: Deferred Back Exam: Normal Inspection Extremities: Normal Inspection Neurological: Alert, Oriented, Normal Cognition Psychiatric: Anxious Course - Re-Assessments/Exams Free Text/Narrative Re-Assessment/Exam: 06/27/20 17:57 pt had a clear urine, normal lipase and amylase, Her liver enzymes are normal and her wbc is clear. Departure - Departure Disposition: Home, Self-Care 01 Clinical Impression: Duodenitis - Discharge Information Instructions: Duodenitis Referrals: Morris Iglesias MD [Primary Care Provider] - Forms: ED Department Discharge Additional Instructions: Use Zofran for nausea as prescribed. Fill your prescription for Carafate in the morning and begin taking it. Use Mylanta liquid antacid 30 mL at a time for stomach burning. Contact Dr. Mckeon's office tomorrow to review tonight's findings and arrange further follow-up. <Brady Cole - Last Filed: 06/28/20 03:45> Course - Vital Signs Last Recorded V/S: Last Vital Signs Temp 35.6 C L 06/27/20 17:15 Pulse 52 L 06/27/20 19:02 Resp 16 06/27/20 17:15 BP 126/62 06/27/20 19:02 Pulse Ox 100 06/27/20 17:15 - Orders/Labs/Meds Orders: Active Orders 24 hr Category Date Time Status CORONAVIRUS COVID-19, TODD Routine Lab 06/27/20 22:09 Received Labs: Laboratory Tests 06/27/20 06/27/20 06/27/20 Range/Units 16:54 16:54 16:55 WBC 4.1 L (4.5-11.0) K/uL RBC 4.36 (3.30-5.50) M/uL Hgb 12.1 D (12.0-15.0) g/dL Hct 38.3 (36.0-48.0) % MCV 88 (80-98) fL MCH 28 (27-31) pg MCHC 32 (32-36) % Plt Count 186 (150-400) K/uL Neut % (Auto) 62 (36-66) % Lymph % (Auto) 22 L (24-44) % [place] % (Auto) 7 H (2-6) % Eos % (Auto) 9 H (2-4) % Baso % (Auto) 1 (0-1) % Sodium 138 L (140-148) mmol/L Potassium 3.8 (3.6-5.2) mmol/L Chloride 103 (100-108) mmol/L Carbon Dioxide 28 (21-32) mmol/L Anion Gap 10.8 (5.0-14.0) mmol/L BUN 20 H D (7-18) mg/dL Creatinine 0.9 (0.6-1.0) mg/dL Est Cr Clr Drug Dosing 56.00 mL/min Estimated GFR (MDRD) > 60 (>60) Glucose 94 (74-106) mg/dL Calcium 9.1 (8.5-10.1) mg/dL Total Bilirubin 0.4 (0.2-1.0) mg/dL AST 23 (15-37) U/L ALT 34 D (12-78) U/L Alkaline Phosphatase 116 D (46-116) U/L C-Reactive Protein (0.0-0.3) mg/dL Total Protein 6.8 (6.4-8.2) g/dL Albumin 3.5 (3.4-5.0) g/dL Globulin 3.3 (2.3-3.5) g/dL Albumin/Globulin Ratio 1.1 L (1.2-2.2) Amylase 54 (25-115) U/L Lipase 115 (73-393) U/L Urine Color (YELLOW) Urine Appearance (CLEAR) Urine pH (5.0-8.0) Ur Specific [place] (1.008-1.030) Urine Protein (NEGATIVE) mg/dL Urine Glucose (UA) (NEGATIVE) mg/dL Urine Ketones (NEGATIVE) mg/dL Urine Occult Blood (NEGATIVE) Urine Nitrite (NEGATIVE) Urine Bilirubin (NEGATIVE) Urine Urobilinogen (0.2-1.0) EU/dL Ur Leukocyte Esterase (NEGATIVE) Urine RBC (0-5) Urine WBC (0-5) Ur Epithelial Cells Amorphous Sediment Urine Bacteria Urine Mucus 06/27/20 06/27/20 Range/Units 16:56 17:34 WBC (4.5-11.0) K/uL RBC (3.30-5.50) M/uL Hgb (12.0-15.0) g/dL Hct (36.0-48.0) % MCV (80-98) fL MCH (27-31) pg MCHC (32-36) % Plt Count (150-400) K/uL Neut % (Auto) (36-66) % Lymph % (Auto) (24-44) % [place] % (Auto) (2-6) % Eos % (Auto) (2-4) % Baso % (Auto) (0-1) % Sodium (140-148) mmol/L Potassium (3.6-5.2) mmol/L Chloride (100-108) mmol/L Carbon Dioxide (21-32) mmol/L Anion Gap (5.0-14.0) mmol/L BUN (7-18) mg/dL Creatinine (0.6-1.0) mg/dL Est Cr Clr Drug Dosing mL/min Estimated GFR (MDRD) (>60) Glucose (74-106) mg/dL Calcium (8.5-10.1) mg/dL Total Bilirubin (0.2-1.0) mg/dL AST (15-37) U/L ALT (12-78) U/L Alkaline Phosphatase (46-116) U/L C-Reactive Protein 0.10 (0.0-0.3) mg/dL Total Protein (6.4-8.2) g/dL Albumin (3.4-5.0) g/dL Globulin (2.3-3.5) g/dL Albumin/Globulin Ratio (1.2-2.2) Amylase (25-115) U/L Lipase (73-393) U/L Urine Color Yellow (YELLOW) Urine Appearance Clear (CLEAR) Urine pH 5.5 (5.0-8.0) Ur Specific [place] 1.020 (1.008-1.030) Urine Protein Negative (NEGATIVE) mg/dL Urine Glucose (UA) Negative (NEGATIVE) mg/dL Urine Ketones Negative (NEGATIVE) mg/dL Urine Occult Blood Negative (NEGATIVE) Urine Nitrite Negative (NEGATIVE) Urine Bilirubin Negative (NEGATIVE) Urine Urobilinogen 0.2 (0.2-1.0) EU/dL Ur Leukocyte Esterase Trace H (NEGATIVE) Urine RBC 0-5 (0-5) Urine WBC 0-5 (0-5) Ur Epithelial Cells Few Amorphous Sediment Few Urine Bacteria Few Urine Mucus Not seen Meds: Medications Discontinued Medications Generic Name Dose Route Start Last Admin Trade Name Freq PRN Reason Stop Dose Admin Al Hydroxide/Mg Hydroxide 30 ml 06/27/20 20:35 06/27/20 21:04 Mag-Al Plus PO 06/27/20 20:36 30 ml ONETIME ONE Administration Sodium Chloride 1,000 mls @ 999 mls/hr 06/27/20 18:00 06/27/20 21:03 Normal Saline IV 999 mls/hr ASDIRECTED SUKH Administration Sodium Chloride 80 mls @ 3 mls/sec 06/27/20 18:45 06/27/20 19:23 Normal Saline IV 3 mls/sec ASDIRECTED SUKH Administration Iopamidol 100 ml 06/27/20 18:45 06/27/20 19:23 Isovue-300 (61%) IV 100 ml . DIRECTED SUKH Administration Ondansetron HCl 4 mg 06/27/20 20:36 06/27/20 21:03 Zofran IVPUSH 06/27/20 20:37 4 mg ONETIME ONE Administration Sodium Chloride 10 ml 06/27/20 18:41 06/27/20 19:23 Saline Flush FLUSH 10 ml ASDIRECTED PRN Administration Keep Vein Open Sucralfate 1 gm 06/27/20 20:37 06/27/20 21:04 Carafate PO 06/27/20 20:38 1 gm ONETIME ONE Administration - Re-Assessments/Exams Free Text/Narrative Re-Assessment/Exam: 06/27/20 20:[address] results with the patient which show duodenitis. She is having some nausea now to which I told her is likely secondary to the irritation in that section of the intestine. She will be given 4 mg of Zofran IV along with 30 mL of Mylanta and 1 g of sucralfate suspension. She felt significantly better after these 3 agents. Plan would be to have her use Zofran at home along with Mylanta and daily sucralfate until further direction by Dr. Mckeon. She was discharged in improved condition. 06/28/20 03:44 Departure - Departure Time of Disposition: 21:51 Sepsis Event Note (ED) - Focused Exam Vital Signs: Vital Signs Temp Pulse Resp BP Pulse Ox 06/27/20 19:02 52 L 126/62 06/27/20 17:15 35.6 C L 58 L 16 130/48 L 100 06/27/20 16:57 35.6 C L 58 L 16 130/48 L 100 06/27/20 16:44 35.6 C L 58 L 16 130/48 L 100 - My Orders Last 24 Hours: My Active Orders 06/27/20 22:09 CORONAVIRUS COVID-19, TODD Routine - Assessment/Plan Last 24 Hours: My Active Orders 06/27/20 22:09 CORONAVIRUS COVID-19, TODD Routine
[2020-06-27] MEDS ORDERED: Sodium Chloride 0.9% 1,000 ML IV SCH (18:00)
[2020-06-27] MEDS ORDERED: Sodium Chloride 0.9% 10 ML Syringe FLUSH PRN (18:41)
[2020-06-27] MEDS ORDERED: Iopamidol 612 MG/ML 100 ML Bottle IV SCH (18:45)
[2020-06-27] MEDS ORDERED: Sodium Chloride 0.9% 80 ML IV SCH (18:45)
--- NOTE | 2020-06-27 18:47 | CRLUS ---
INDICATION: Pain in right upper quadrant TECHNIQUE: Ultrasound abdomen limited. Sonographic images of the right upper quadrant were obtained using napier-scale and color Doppler images. COMPARISON: None FINDINGS: Liver: The liver parenchyma is normal in echotexture. Gallbladder: Previous cholecystectomy noted without significant intra- or extrahepatic biliary ductal dilatation seen. No sonographic Collins sign is present. Common bile duct: 7 mm. Pancreas: The visualized portions of the pancreatic head and body are normal in appearance. Right Kidney: 13 cm. There is a 9 cm simple cyst present in the right kidney. No hydronephrosis or ureterectasis is seen. Vascular: The visualized abdominal aorta and IVC are unremarkable. The visualized portal vein is patent with normal anterograde flow. IMPRESSION: 1. The right upper quadrant is unremarkable in appearance. Dictated by Ulices Feliciano MD @ 06/27/2020 6:45:23 PM Dictated by: Ulices Feliciano MD @ 06/27/2020 18:45:29 (Electronically Signed)
--- NOTE | 2020-06-27 19:39 | CRLCR ---
INDICATION: Right upper abdominal pain TECHNIQUE: Chest radiograph 1 view COMPARISON: None FINDINGS: Mediastinum: The mediastinum is normal in appearance. The heart silhouette is normal in size and morphology. Lung: Both lungs are unremarkable in appearance. No sign of pleural effusion seen. No pneumothorax is identified. Bone and Soft tissue: Unremarkable for age. IMPRESSION: 1. No acute cardiopulmonary disease is seen. Dictated by: Ulices Feliciano MD @ 06/27/2020 19:38:49 (Electronically Signed)
--- NOTE | 2020-06-27 19:52 | CRLCT ---
INDICATION: Pain COMPARISON: May 29, 2020 TECHNIQUE: CT examination of the abdomen and pelvis was performed following the uneventful intravenous administration of 100 cc of Isovue-300. Thin section axial images were obtained from the lung bases through the pubic symphysis. Oral contrast was not administered. Please note that all CT scans at this facility use dose modulation, iterative reconstruction, and/or weight-based dosing when appropriate to reduce radiation dose to as low as reasonably achievable. FINDINGS: LUNG BASES: The lung bases as visualized appear normal.Heart size normal. The lung bases. Moderate-sized hiatal hernia and postsurgical changes near the EG junction and postsurgical changes in the upper abdomen. LIVER/BILIARY SYSTEM:Liver normal in size. Several low-density lesions consistent with cysts. No biliary ductal dilatation. Surgically absent gallbladder. No choledocholithiasis ADRENALS: Normal KIDNEYS, URETERS and BLADDER:Right renal cyst measuring 9 centimeter SPLEEN:Normal appearance. PANCREAS: Appears normal. RETROPERITONEUM and MESENTERY: There is no mass, adenopathy or aortic aneurysm. There is atherosclerotic vascular calcification GASTROINTESTINAL SYSTEM: There is circumferential thickening of the duodenal wall in the postbulbar duodenum consistent with significant duodenal inflammatory disease/duodenitis. No free air or collection other is surrounding periduodenal fluid. This is new since the prior study. PELVIS: No mass, adenopathy or free fluid. OSSEOUS STRUCTURES and ABDOMINAL WALL: There is an age-appropriate appearance of the osseous structures.There are postsurgical changes involving the anterior abdominal wall on the right especially the mid and lower portion extending to the right lower quadrant. There is some fluid associated with areas of surgical hernia repair. This is probably within normal limits for the time course status postsurgery (less than 1 month by report). This assumes that this area is not clinically infected OTHER: No free fluid or free air. IMPRESSION: 1. Findings likely representing significant duodenitis. No intramural air, free air or collection. There is periduodenal free fluid. 2. Postsurgical changes involving the anterior right abdominal wall especially in the midportion extending to the right lower quadrant. This is likely within normal limits for less than 1 month post surgery assuming this areas not clinically infected. 3. I discussed the above findings with Dr. Cole at 7:45 p.m. on June 27, [address] note that all [address] scans at this facility use dose modulation, iterative reconstruction, and/or weight-based dosing when appropriate to reduce radiation dose to as low as reasonably achievable. Dictated by Bennie Hernández MD @ Jun 27 2020 7:38PM Signed by Dr. Bennie Hernández @ Jun 27 2020 7:50PM
[2020-06-27] MEDS ORDERED: Aluminum Hydroxide/Magnesium Hydroxide/Simethicone Susp 30 ML Cup PO ONE (20:35)
[2020-06-27] MEDS ORDERED: Ondansetron 4 MG/2 ML SDV IVPUSH ONE (20:36)
[2020-06-27] MEDS ORDERED: Sucralfate Suspension 1 GM/10 ML Cup PO ONE (20:37)
== END 2020-06-27 22:12 | disposition home or self-care (01) ==
LOC: JP.ED 16:28
DX: K29.80 Duodenitis without bleeding (principal); J45.909 Unspecified asthma, uncomplicated; K21.9 Gastro-esophageal reflux disease without esophagitis; Z88.1 Allergy status to other antibiotic agents; Z88.6 Allergy status to analgesic agent; Z88.8 Allergy status to other drugs, medicaments and biological substances; Z88.0 Allergy status to penicillin; Z79.899 Other long term (current) drug therapy; Z20.828 Contact with and (suspected) exposure to other viral communicable diseases
CPT/HCPCS: 36415; 71045; 74177; 76705; 80053; 81001; 82150; 83690; 85025; 86140; 96361; 96374; 99284; A9270; J2405; J7030; Q9967; U0002

== ENCOUNTER 2023-03-19 06:00 | Day surgery (SDC) | payer MEDICARE, OTHER ==
[2023-03-19] MEDS ORDERED: fentaNYL 100 MCG/2 ML SDV ONE (06:35)
[2023-03-19] MEDS ORDERED: Propofol 200 MG/20 ML SDV ONE (06:35)
[2023-03-19] MEDS ORDERED: Lactated Ringers 1,000 ML IV ONE (06:45)
[2023-03-19] MEDS ORDERED: Cyanocobalamin (Vitamin B12) 1,000 MCG/ML SDV IM ONE (07:00)
[2023-03-19] MEDS ORDERED: Glycopyrrolate 0.2 MG/ML 2 ML SDV IVPUSH ONE (07:15)
[2023-03-19] MEDS ORDERED: MVI, Adult with Vitamin K 10 ML, Thiamine 200 MG, Chromium/Copper/Mang/Selen/Zn 1 ML in... IV ONE ×4 (07:45)
[2023-03-19] MEDS ORDERED: Lidocaine 2% 5 ML SDV ONE (08:00)
== END 2023-03-19 10:07 | disposition home or self-care (01) ==
LOC: JP.SDS 06:00
PROVIDERS: ATTEND Surgery
DX: K21.9 Gastro-esophageal reflux disease without esophagitis (principal); R10.9 Unspecified abdominal pain; R14.0 Abdominal distension (gaseous); Z98.84 Bariatric surgery status; Z88.0 Allergy status to penicillin; Z88.6 Allergy status to analgesic agent; Z88.8 Allergy status to other drugs, medicaments and biological substances; Z79.899 Other long term (current) drug therapy
CPT/HCPCS: 43235; J2704; J3010; J3411; J3490; J7120

== ENCOUNTER 2023-03-22 23:01 | Inpatient (IN) | payer MEDICARE, OTHER ==
[2023-03-23] MEDS ORDERED: Ondansetron 4 MG/2 ML SDV IVPUSH ONE (00:04)
[2023-03-23 00:10] LABS: BASOPHILS PERCENT AUTO 0.4 % (0.1-1.3); EOSINOPHILS ABSOLUTE AUTO 0.07 K/uL (0.00-0.40); EOSINOPHILS PERCENT AUTO 1.6 % (0.0-5.4); HEMATOCRIT 37.5 % (34.3-46.0); HEMOGLOBIN 11.5 g/dL (11.2-15.5); IMMATURE GRAN ABSOLUTE AUTO 0.06 K/uL (0.00-0.23); IMMATURE GRAN PERCENT AUTO 1.3 % (0.0-0.7); LYMPHOCYTES PERCENT AUTO 15.6 % (11.4-47.7); MEAN CORPUSCULAR HEMOGLOBIN 22.3 pg (31.6-35.5); MEAN CORPUSCULAR HGB CONC 30.7 g/dL (31.6-35.5); MEAN CORPUSCULAR VOLUME 72.8 fL (81.4-99.0); MONOCYTES ABSOLUTE AUTO 0.26 K/uL (0.20-0.90); MONOCYTES PERCENT AUTO 5.8 % (3.3-12.6); NEUTROPHILS ABSOLUTE AUTO 3.37 K/uL (1.0-7.6); NEUTROPHILS PERCENT AUTO 75.3 % (40.0-78.1); PLATELET COUNT,PLT 194 K/uL (130-375); RED BLOOD CELL COUNT 5.15 M/uL (3.77-5.24); WHITE BLOOD CELL COUNT,WBC 4.5 K/uL (3.2-11.0)
[2023-03-23 00:11] LABS: BASOPHILS ABSOLUTE AUTO 0.02 K/uL (0.00-0.10)
[2023-03-23 00:26] LABS: ALANINE AMINOTRANSFERASE,ALT 22 U/L (12-78); ALBUMIN 3.7 g/dL (3.4-5.0); ALKALINE PHOSPHATASE 86 U/L (46-116); ASPARTATE AMNIOTRANSFERASE,AST 25 U/L (15-37); BILIRUBIN TOTAL 0.5 mg/dL (0.2-1.0); BLOOD UREA NITROGEN,BUN 16 mg/dL (7-18); CALCIUM 9.1 mg/dL (8.5-10.1); CARBON DIOXIDE,CO2 26 mmol/L (21-32); CHLORIDE,CL 101 mmol/L (100-108); CREATININE 0.9 mg/dL (0.6-1.0); EST CRCL DRUG DOSING (CG) 54.71 mL/min; ESTIMATED GFR 68 mL/min (>60); GLUCOSE RANDOM 98 mg/dL (74-106); MAGNESIUM 2.2 mg/dL (1.8-2.4); POTASSIUM,K 3.6 mmol/L (3.6-5.2); PROTEIN TOTAL,TP 7.6 g/dL (6.4-8.2); SODIUM,NA 136 mmol/L (140-148)
[2023-03-23 00:28] LABS: ANION GAP 12.6 mmol/L (5.0-14.0)
[2023-03-23] MEDS ORDERED: Sodium Chloride 0.9% 10 ML Syringe FLUSH PRN (00:30)
[2023-03-23] MEDS ORDERED: HYDROmorphone 0.5 MG/0.5 ML Syringe IVPUSH ONE (00:37)
[2023-03-23] MEDS ORDERED: Naloxone 0.4 MG/ML SDV IVPUSH PRN ×2 (00:37→01:06)
[2023-03-23] MEDS ORDERED: Ondansetron 4 MG Tab.DIS PO PRN (01:06)
[2023-03-23] MEDS ORDERED: Albuterol 0.083% 2.5 MG/3 ML Neb Soln NEB PRN (01:06)
[2023-03-23] MEDS ORDERED: Sodium Chloride 0.9% 1,000 ML IV SCH (01:06)
[2023-03-23] MEDS ORDERED: Acetaminophen 325 MG Tab PO PRN (01:06)
[2023-03-23] MEDS ORDERED: Sennosides/Docusate Sodium 50-8.6 MG Tab PO PRN (01:06)
[2023-03-23] MEDS ORDERED: Pantoprazole 40 MG Vial IV SCH (01:06)
[2023-03-23] MEDS ORDERED: Magnesium Hydroxide 400 MG/5 ML Susp 30 ML Cup PO PRN (01:06)
[2023-03-23] MEDS ORDERED: HYDROmorphone 1 MG/ML Syringe IVPUSH PRN (01:06)
[2023-03-23] MEDS: HYDROmorphone 0.5 MG/0.5 ML Syringe IVPUSH PRN ×3 (04:54→22:54)
[2023-03-23] MEDS ORDERED: Iopamidol 612 MG/ML 30 ML SDV PO STA (08:48)
[2023-03-23] MEDS ORDERED: Sodium Chloride 0.9% 50 ML IV STA (08:49)
[2023-03-23] MEDS ORDERED: Sodium Chloride 0.9% 10 ML Syringe FLUSH STA (08:49)
[2023-03-23] MEDS ORDERED: Iopamidol 612 MG/ML 100 ML Bottle IV STA (08:49)
[2023-03-23] MEDS: Dextrose 5%-Lactated Ringers 1,000 ML IV SCH ×2 (09:46→17:59)
[2023-03-23] MEDS: Pantoprazole 40 MG Vial IV SCH (22:52)
[2023-03-23] MEDS: Ondansetron 4 MG/2 ML SDV IV PRN (23:01)
[2023-03-24] MEDS: diphenhydrAMINE 50 MG/ML SDV IVPUSH PRN ×2 (02:24→19:31)
[2023-03-24 04:34] LABS: HEMATOCRIT 31.2 % (34.3-46.0); HEMOGLOBIN 9.2 g/dL (11.2-15.5); MEAN CORPUSCULAR HGB CONC 29.5 g/dL (31.6-35.5); MEAN CORPUSCULAR VOLUME 74.6 fL (81.4-99.0); RED BLOOD CELL COUNT 4.18 M/uL (3.77-5.24); WHITE BLOOD CELL COUNT,WBC 3.3 K/uL (3.2-11.0)
[2023-03-24 05:08] LABS: A/G RATIO 0.9 (1.2-2.2); ALANINE AMINOTRANSFERASE,ALT 18 U/L (12-78); ALBUMIN 2.8 g/dL (3.4-5.0); ALKALINE PHOSPHATASE 66 U/L (46-116); ANION GAP 6.6 mmol/L (5.0-14.0); ASPARTATE AMNIOTRANSFERASE,AST 18 U/L (15-37); BILIRUBIN TOTAL 0.3 mg/dL (0.2-1.0); BLOOD UREA NITROGEN,BUN 8 mg/dL (7-18); CALCIUM 8.4 mg/dL (8.5-10.1); CARBON DIOXIDE,CO2 28 mmol/L (21-32); CHLORIDE,CL 106 mmol/L (100-108); CREATININE 0.9 mg/dL (0.6-1.0); EST CRCL DRUG DOSING (CG) 53.67 mL/min; ESTIMATED GFR 68 mL/min (>60); FERRITIN 9 ng/ml (8-388); GLUCOSE RANDOM 106 mg/dL (74-106); PHOSPHORUS 3.9 mg/dL (2.5-4.9); POTASSIUM,K 3.9 mmol/L (3.6-5.2); PROTEIN TOTAL,TP 5.9 g/dL (6.4-8.2); SODIUM,NA 141 mmol/L (140-148)
[2023-03-24] MEDS ORDERED: Sodium Ferric Gluconate Cmplex 250 MG in Sodium Chloride 0.9% 100 ML IV ONE (10:00)
[2023-03-24] MEDS: Dextrose 5%-Lactated Ringers 1,000 ML IV SCH ×2 (14:49→23:49)
[2023-03-24] MEDS: HYDROmorphone 0.5 MG/0.5 ML Syringe IVPUSH PRN ×2 (15:42→18:42)
[2023-03-24] MEDS: Ondansetron 4 MG/2 ML SDV IV PRN (15:43)
[2023-03-24] MEDS: Pantoprazole 40 MG Vial IV SCH (22:10)
[2023-03-25] MEDS: Dextrose 5%-Lactated Ringers 1,000 ML IV SCH (07:30)
[2023-03-25] MEDS ORDERED: Albuterol/Ipratropium 3.0-0.5 MG/3 ML Neb Soln INH ONE (10:00)
[2023-03-25] MEDS ORDERED: Meropenem 500 MG in Sodium Chloride 0.9% 50 ML IV ONE (10:00)
[2023-03-25] MEDS ORDERED: Ketamine 500 MG/5 ML MDV IV SCH (10:15)
[2023-03-25] MEDS ORDERED: Ketamine 17 MG in Sodium Chloride 0.9% 19.83 ML IV SCH (10:15)
[2023-03-25] MEDS ORDERED: Ondansetron 4 MG/2 ML SDV IVPUSH PRN ×2 (11:43→16:00)
[2023-03-25] MEDS ORDERED: Naloxone 0.4 MG/ML SDV IVPUSH PRN (11:43)
[2023-03-25] MEDS ORDERED: diphenhydrAMINE 50 MG/ML SDV IVPUSH PRN ×2 (11:43→16:00)
[2023-03-25] MEDS ORDERED: diphenhydrAMINE 25 MG Cap PO PRN (11:43)
[2023-03-25] MEDS ORDERED: Naloxone 0.4 MG/ML SDV IV PRN (12:00)
[2023-03-25] MEDS ORDERED: fentaNYL 250 MCG/5 ML SDV ONE (12:04)
[2023-03-25] MEDS ORDERED: Succinylcholine 200 MG/10 ML MDV ONE (12:04)
[2023-03-25] MEDS ORDERED: Ondansetron 4 MG/2 ML SDV ONE (12:04)
[2023-03-25] MEDS ORDERED: Neostigmine Methylsulfate 1 MG/ML 5 ML Syringe ONE (12:04)
[2023-03-25] MEDS ORDERED: Propofol 200 MG/20 ML SDV ONE (12:04)
[2023-03-25] MEDS ORDERED: Dexamethasone 4 MG/ML SDV ONE (12:04)
[2023-03-25] MEDS ORDERED: Glycopyrrolate 0.2 MG/ML 5 ML MDV ONE (12:04)
[2023-03-25] MEDS ORDERED: Rocuronium 50 MG/5 ML Vial ONE (12:04)
[2023-03-25] MEDS ORDERED: Lidocaine 1% 50 ML MDV ONE (12:35)
[2023-03-25] MEDS ORDERED: Meropenem 500 MG SDV ONE (12:35)
[2023-03-25] MEDS ORDERED: Bupivacaine 0.5%/EPINEPHrine 1:200,000 50 ML MDV ONE (12:35)
[2023-03-25] MEDS ORDERED: Linezolid 600 MG/300 ML Premix Bag IRR ONE (13:02)
[2023-03-25] MEDS ORDERED: Lactated Ringers 1,000 ML ONE (13:09)
[2023-03-25] MEDS: fentaNYL/Normal Saline 600 MCG/30 ML PCA Vial IV SCH ×2 (13:19→22:53)
[2023-03-25] MEDS ORDERED: fentaNYL 100 MCG/2 ML SDV ONE ×2 (13:57→14:35)
[2023-03-25] MEDS ORDERED: Labetalol 20 MG/4 ML Syringe IVPUSH PRN (16:00)
[2023-03-25] MEDS ORDERED: Albuterol/Ipratropium 3.0-0.5 MG/3 ML Neb Soln INH PRN (16:00)
[2023-03-25] MEDS ORDERED: Metoclopramide 10 MG/2 ML SDV IVPUSH PRN (16:00)
[2023-03-25] MEDS ORDERED: Acetaminophen 500 MG Tab PO PRN ×2 (16:00→22:00)
[2023-03-25] MEDS ORDERED: hydrOXYzine HCL 100 MG/2 ML SDV IM PRN (16:00)
[2023-03-25] MEDS: Cyclobenzaprine 10 MG Tab PO PRN (16:11)
[2023-03-25] MEDS: MVI, Adult with Vitamin K 10 ML, Thiamine 200 MG, Zinc/Copper/Manganese/Selenium 1 ML i... IV SCH ×4 (17:37)
[2023-03-25] MEDS: Meropenem 500 MG in Sodium Chloride 0.9% 50 ML IV SCH ×2 (17:37→22:54)
[2023-03-25] MEDS: Albuterol/Ipratropium 3.0-0.5 MG/3 ML Neb Soln INH SCH (20:15)
[2023-03-25] MEDS: Heparin Sodium 5,000 Units/ML Vial SUBCUT SCH (20:16)
[2023-03-25] MEDS: Acetaminophen 500 MG Tab PO SCH (22:54)
[2023-03-25] MEDS: Pantoprazole 40 MG Vial IV SCH (22:54)
[2023-03-26] MEDS: Dextrose 5%-Lactated Ringers 1,000 ML IV SCH ×3 (00:14→14:20)
[2023-03-26] MEDS ORDERED: Iopamidol 612 MG/ML 50 ML SDV PO ONE (04:03)
[2023-03-26 05:06] LABS: BASOPHILS ABSOLUTE AUTO 0.01 K/uL (0.00-0.10); BASOPHILS PERCENT AUTO 0.1 % (0.1-1.3); HEMATOCRIT 35.5 % (34.3-46.0); HEMOGLOBIN 10.7 g/dL (11.2-15.5); IMMATURE GRAN ABSOLUTE AUTO 0.02 K/uL (0.00-0.23); IMMATURE GRAN PERCENT AUTO 0.3 % (0.0-0.7); LYMPHOCYTES ABSOLUTE AUTO 0.26 K/uL (0.8-3.3); LYMPHOCYTES PERCENT AUTO 3.8 % (11.4-47.7); MEAN CORPUSCULAR HEMOGLOBIN 22.3 pg (31.6-35.5); MEAN CORPUSCULAR HGB CONC 30.1 g/dL (31.6-35.5); MONOCYTES ABSOLUTE AUTO 0.33 K/uL (0.20-0.90); MONOCYTES PERCENT AUTO 4.8 % (3.3-12.6); PLATELET COUNT,PLT 179 K/uL (130-375); WHITE BLOOD CELL COUNT,WBC 6.8 K/uL (3.2-11.0)
[2023-03-26 05:33] LABS: A/G RATIO 0.9 (1.2-2.2); ALANINE AMINOTRANSFERASE,ALT 19 U/L (12-78); ALBUMIN 2.9 g/dL (3.4-5.0); ALKALINE PHOSPHATASE 76 U/L (46-116); ASPARTATE AMNIOTRANSFERASE,AST 20 U/L (15-37); BILIRUBIN TOTAL 0.3 mg/dL (0.2-1.0); BLOOD UREA NITROGEN,BUN 6 mg/dL (7-18); CALCIUM 8.8 mg/dL (8.5-10.1); CARBON DIOXIDE,CO2 26 mmol/L (21-32); CHLORIDE,CL 104 mmol/L (100-108); CREATININE 1.1 mg/dL (0.6-1.0); EST CRCL DRUG DOSING (CG) 43.91 mL/min; ESTIMATED GFR 54 mL/min (>60); GLUCOSE RANDOM 175 mg/dL (74-106); MAGNESIUM 1.9 mg/dL (1.8-2.4); POTASSIUM,K 3.7 mmol/L (3.6-5.2); PRO B-TYPE NATRIUR PEPT,BNPPRO 606 pg/mL (5-125); PROTEIN TOTAL,TP 6.3 g/dL (6.4-8.2); SODIUM,NA 138 mmol/L (140-148)
[2023-03-26 05:35] LABS: ANION GAP 11.7 mmol/L (5.0-14.0)
[2023-03-26] MEDS: Meropenem 500 MG in Sodium Chloride 0.9% 50 ML IV SCH ×4 (05:57→23:29)
[2023-03-26] MEDS: Acetaminophen 500 MG Tab PO SCH ×3 (05:57→22:09)
[2023-03-26] MEDS: Albuterol/Ipratropium 3.0-0.5 MG/3 ML Neb Soln INH SCH ×4 (07:03→20:44)
[2023-03-26] MEDS: Heparin Sodium 5,000 Units/ML Vial SUBCUT SCH ×2 (08:18→20:43)
[2023-03-26] MEDS: Bisacodyl 5 MG Tab PO SCH ×2 (09:27→20:44)
[2023-03-26] MEDS: Docusate Sodium 100 MG Cap PO SCH ×2 (09:27→20:44)
[2023-03-26] MEDS: MVI, Adult with Vitamin K 10 ML, Thiamine 200 MG, Zinc/Copper/Manganese/Selenium 1 ML i... IV SCH ×4 (16:24)
[2023-03-26] MEDS: Pantoprazole 40 MG Vial IV SCH (22:09)
[2023-03-27] MEDS: Dextrose 5%-Lactated Ringers 1,000 ML IV SCH (02:42)
[2023-03-27] MEDS: fentaNYL/Normal Saline 600 MCG/30 ML PCA Vial IV SCH (04:57)
[2023-03-27] MEDS: Meropenem 500 MG in Sodium Chloride 0.9% 50 ML IV SCH (05:35)
[2023-03-27] MEDS: Acetaminophen 500 MG Tab PO SCH ×3 (05:36→22:25)
[2023-03-27] MEDS: Albuterol/Ipratropium 3.0-0.5 MG/3 ML Neb Soln INH SCH ×4 (07:07→21:00)
[2023-03-27] MEDS: Heparin Sodium 5,000 Units/ML Vial SUBCUT SCH ×2 (07:22→19:51)
[2023-03-27] MEDS: Docusate Sodium 100 MG Cap PO SCH ×2 (08:59→21:00)
[2023-03-27] MEDS: Bisacodyl 5 MG Tab PO SCH ×2 (08:59→20:59)
[2023-03-27] MEDS ORDERED: Cyanocobalamin (Vitamin B12) 1,000 MCG/ML SDV IM ONE (09:00)
[2023-03-27] MEDS ORDERED: oxyCODONE 5 MG Tab PO PRN (12:51)
[2023-03-27] MEDS: Cyclobenzaprine 10 MG Tab PO PRN (13:22)
[2023-03-27] MEDS ORDERED: Pantoprazole 40 MG Tab.CR PO SCH (21:00)
[2023-03-27] MEDS ORDERED: Pantoprazole 40 MG Delayed-Release Granules 1 Packet PO SCH (21:00)
[2023-03-28 05:04] LABS: BASOPHILS ABSOLUTE AUTO 0.03 K/uL (0.00-0.10); BASOPHILS PERCENT AUTO 0.7 % (0.1-1.3); EOSINOPHILS PERCENT AUTO 4.7 % (0.0-5.4); HEMATOCRIT 31.7 % (34.3-46.0); HEMOGLOBIN 9.6 g/dL (11.2-15.5); IMMATURE GRAN PERCENT AUTO 0.5 % (0.0-0.7); LYMPHOCYTES ABSOLUTE AUTO 1.09 K/uL (0.8-3.3); LYMPHOCYTES PERCENT AUTO 25.3 % (11.4-47.7); MEAN CORPUSCULAR HEMOGLOBIN 22.3 pg (31.6-35.5); MEAN CORPUSCULAR HGB CONC 30.3 g/dL (31.6-35.5); MEAN CORPUSCULAR VOLUME 73.7 fL (81.4-99.0); MONOCYTES ABSOLUTE AUTO 0.29 K/uL (0.20-0.90); MONOCYTES PERCENT AUTO 6.7 % (3.3-12.6); NEUTROPHILS ABSOLUTE AUTO 2.67 K/uL (1.0-7.6); NEUTROPHILS PERCENT AUTO 62.1 % (40.0-78.1); PLATELET COUNT,PLT 158 K/uL (130-375); WHITE BLOOD CELL COUNT,WBC 4.3 K/uL (3.2-11.0)
[2023-03-28 05:10] LABS: IMMATURE GRAN ABSOLUTE AUTO 0.02 K/uL (0.00-0.23)
[2023-03-28 05:13] LABS: A/G RATIO 0.9 (1.2-2.2); ALANINE AMINOTRANSFERASE,ALT 18 U/L (12-78); ALBUMIN 2.7 g/dL (3.4-5.0); ALKALINE PHOSPHATASE 72 U/L (46-116); ANION GAP 6.1 mmol/L (5.0-14.0); ASPARTATE AMNIOTRANSFERASE,AST 21 U/L (15-37); BILIRUBIN TOTAL 0.4 mg/dL (0.2-1.0); BLOOD UREA NITROGEN,BUN 9 mg/dL (7-18); CALCIUM 8.5 mg/dL (8.5-10.1); CARBON DIOXIDE,CO2 29 mmol/L (21-32); CHLORIDE,CL 105 mmol/L (100-108); CREATININE 0.9 mg/dL (0.6-1.0); EST CRCL DRUG DOSING (CG) 53.96 mL/min; ESTIMATED GFR 68 mL/min (>60); GLUCOSE RANDOM 77 mg/dL (74-106); MAGNESIUM 1.9 mg/dL (1.8-2.4); PHOSPHORUS 3.5 mg/dL (2.5-4.9); POTASSIUM,K 3.8 mmol/L (3.6-5.2); PROTEIN TOTAL,TP 5.8 g/dL (6.4-8.2); SODIUM,NA 140 mmol/L (140-148)
[2023-03-28] MEDS: Acetaminophen 500 MG Tab PO SCH (05:38)
[2023-03-28] MEDS: Heparin Sodium 5,000 Units/ML Vial SUBCUT SCH (07:30)
[2023-03-28] MEDS: Bisacodyl 5 MG Tab PO SCH (08:06)
[2023-03-28] MEDS: Docusate Sodium 100 MG Cap PO SCH (08:06)
[2023-03-28] MEDS: Albuterol/Ipratropium 3.0-0.5 MG/3 ML Neb Soln INH SCH ×2 (09:07→10:10)
== END 2023-03-28 11:25 | disposition home or self-care (01) | DRG 326 ==
LOC: JP.ED 23:01 → JP.MS 03-23 00:22
PROVIDERS: ADMIT Registered Nurse; ATTEND Surgery
PROC: 0DS80ZZ Reposition Small Intestine, Open Approach (ICD-10-PCS; principal; 2023-03-25)
PROC: 0D150ZA Bypass Esophagus to Jejunum, Open Approach (ICD-10-PCS; 2023-03-25)
PROC: 0WQF0ZZ Repair Abdominal Wall, Open Approach (ICD-10-PCS; 2023-03-25)
PROC: 3E0M05Z Introduction of Adhesion Barrier into Peritoneal Cavity, Open Approach (ICD-10-PCS; 2023-03-25)
DX: K56.609 Unspecified intestinal obstruction, unspecified as to partial versus complete obstruction (principal); R11.2 Nausea with vomiting, unspecified; K95.89 Other complications of other bariatric procedure; K56.2 Volvulus; K43.0 Incisional hernia with obstruction, without gangrene; Z68.41 Body mass index [BMI] 40.0-44.9, adult; Z88.1 Allergy status to other antibiotic agents; Z88.6 Allergy status to analgesic agent; J45.909 Unspecified asthma, uncomplicated; Z20.822 Contact with and (suspected) exposure to COVID-19; K21.9 Gastro-esophageal reflux disease without esophagitis; M19.90 Unspecified osteoarthritis, unspecified site; F32.A Depression, unspecified; E66.9 Obesity, unspecified; E61.1 Iron deficiency; M79.7 Fibromyalgia; E86.0 Dehydration; Z88.0 Allergy status to penicillin; Z88.5 Allergy status to narcotic agent; Z88.8 Allergy status to other drugs, medicaments and biological substances; Z91.09 Other allergy status, other than to drugs and biological substances; Z79.899 Other long term (current) drug therapy; Z90.49 Acquired absence of other specified parts of digestive tract; Z90.710 Acquired absence of both cervix and uterus; Z98.890 Other specified postprocedural states
CPT/HCPCS: 36415; 80053; 83735; 85025; 96374; 99285; J2405; U0002; 74177; 74240; 74240-26; 82728; 83880; 84100; 85027; 86850; 86900; 86901; 86920; 86922; 94640; 96375; A9270-GY; C9113; J0131; J0171; J0330; J1100; J1170; J1200; J1644; J2001; J2020; J2185; J2704; J2710; J2795; J2916; J3010; J3410; J3411; J3420; J3490; J7030; J7120; J7121; J7620; Q9967